=== PATIENT | male | born 1980 | race Caucasian/White ===

== ENCOUNTER 2020-07-20 11:25 | Inpatient (IN) | payer OTHER ==
[~2020-07-20] VITALS: Ht 172.7 cm; Wt 72.7 kg
[2020-07-20 13:07] LABS: BASOPHILS % (AUTO) 0.5 % (0.0-2.0); EOSINOPHILS % (AUTO) 3.3 % (1.0-6.0); HEMATOCRIT 50.6 % (41-53); HEMOGLOBIN 17.6 g/dL (13.5-17.5); LYMPHOCYTES % (AUTO) 33.6 % (22.0-44.0); MEAN CORPUSCULAR HEMOGLOBIN 33.1 pg (26.0-34.0); MEAN CORPUSCULAR HGB CONC 34.8 G/dL (31.0-37.0); MEAN CORPUSCULAR VOLUME 95 fL (80-100); MONOCYTES # (AUTO) 0.4 K/uL (0.1-1.0); MONOCYTES % (AUTO) 14.1 % (2.0-9.0); NEUTROPHILS # (AUTO) 1.4 K/uL (1.8-7.7); NEUTROPHILS % (AUTO) 48.5 % (40.0-70.0); PLATELET COUNT (AUTO) 134 K/uL (150-450); RED BLOOD CELL COUNT(AUTO) 5.31 MIL/uL (4.50-5.90); RED CELL DISTRIBUTION WIDTH 12.9 % (11.5-14.5)
[2020-07-20 13:14] LABS: ANION GAP 10 mmol/L (8-16); CALCIUM, TOTAL 9.2 mg/dL (8.8-10.5); CARBON DIOXIDE 26 mmol/L (22-29); CHLORIDE 100 mmol/L (98-107); CREATININE 0.96 mg/dL (0.60-1.30); GLOMERULAR FILTR. RATE CALC > 60 mL/min (>60); GLUCOSE,RANDOM 98 mg/dL (70-110); POTASSIUM 4.4 mmol/L (3.5-5.1); SODIUM SERUM 136 mmol/L (136-145); UREA NITROGEN, BLOOD 13 mg/dL (7-18)
[2020-07-20] MEDS ORDERED: ZOLPIDEM TARTRATE 5 MG TABLET PO PRN (13:15)
[2020-07-20] MEDS ORDERED: ACETAMINOPHEN 325 MG TABLET PO PRN (13:15)
[2020-07-20] MEDS ORDERED: ONDANSETRON HCL 4 MG/2 ML VIAL IVP PRN (13:15)
[2020-07-20 13:20] LABS: ALANINE AMINOTRANSFERASE 138 U/L (12-78); ALBUMIN 3.9 g/dL (3.4-5.0); ALKALINE PHOSPHATASE 120 U/L (46-116); ASPARTATE AMINOTRANSFERASE 100 U/L (15-37); BILIRUBIN,TOTAL 0.6 mg/dL (0.1-1.0)
[2020-07-20] MEDS ORDERED: SODIUM CHLORIDE 0.9% 1,000 ML IV ONE (13:30)
[2020-07-20] MEDS: AmLODIPine BESYLATE 5 MG TABLET PO SCH (13:57)
[2020-07-20] MEDS: MULTIVITAMINS WITH MINERALS, THERAPEUTIC TABLET PO SCH (13:57)
[2020-07-20 15:11] LABS: COVID AG,FIA SOURCE NASOPHARYNGEAL
[2020-07-20 16:32] VITALS: BP 148/101
[2020-07-20] MEDS ORDERED: AmLODIPine BESYLATE 5 MG TABLET PO ONE (17:30)
[2020-07-20 18:39] VITALS: BP 159/94
[2020-07-20 19:59] VITALS: BP_SYST 127; BP_DIAS 79; BP_DIAS 80
[2020-07-20] MEDS: DOCUSATE SODIUM 100 MG CAPSULE PO SCH (20:10)
[2020-07-21 04:45] VITALS: BP 116/72
[2020-07-21 07:35] VITALS: BP 119/78
[2020-07-21] MEDS: MULTIVITAMINS WITH MINERALS, THERAPEUTIC TABLET PO SCH (08:01)
[2020-07-21] MEDS: FAMOTIDINE 20 MG TABLET PO SCH (08:01)
[2020-07-21] MEDS: ASPIRIN 81 MG CHEWABLE TABLET PO SCH (08:02)
[2020-07-21] MEDS: DOCUSATE SODIUM 100 MG CAPSULE PO SCH ×2 (08:02→20:01)
[2020-07-21] MEDS: AmLODIPine BESYLATE 5 MG TABLET PO SCH (08:02)
[2020-07-21] MEDS: LORazepam 2 MG/ML VIAL IVP PRN ×2 (09:22→17:52)
[2020-07-21 16:02] LABS: AMPHET/METH SCREEN,URINE POSITIVE (NEGATIVE); BARBITURATE SCREEN, URINE NEGATIVE (NEGATIVE); BENZODIAZEPINES SCREEN,URINE NEGATIVE (NEGATIVE); CANNABINOID SCREEN,URINE POSITIVE (NEGATIVE); COCAINE SCREEN,URINE NEGATIVE (NEGATIVE); METHADONE SCREEN, URINE NEGATIVE (NEGATIVE); OPIATE SCREEN,URINE POSITIVE (NEGATIVE)
[2020-07-21 16:10] LABS: PHENCYCLIDINE SCREEN,URINE NEGATIVE (NEGATIVE)
[2020-07-21 19:45] VITALS: BP 128/90
[2020-07-22 05:24] VITALS: BP 121/80
[2020-07-22 08:02] VITALS: BP 133/95
[2020-07-22] MEDS: FAMOTIDINE 20 MG TABLET PO SCH (08:44)
[2020-07-22] MEDS: DOCUSATE SODIUM 100 MG CAPSULE PO SCH ×2 (08:44→20:50)
[2020-07-22] MEDS: AmLODIPine BESYLATE 5 MG TABLET PO SCH (08:44)
[2020-07-22] MEDS: MULTIVITAMINS WITH MINERALS, THERAPEUTIC TABLET PO SCH (08:44)
[2020-07-22] MEDS: ASPIRIN 81 MG CHEWABLE TABLET PO SCH (08:44)
[2020-07-22] MEDS: LORazepam 2 MG/ML VIAL IVP PRN (08:45)
[2020-07-22] MEDS ORDERED: LORazepam 1 MG TABLET PO PRN (09:45)
[2020-07-22] MEDS ORDERED: VITAMINS A & D 113 GM OINTMENT TP SCH (14:00)
[2020-07-22] MEDS ORDERED: MINERAL OIL/PETROLATUM 120 GM CREAM TP SCH (14:00)
[2020-07-22 20:41] VITALS: BP 136/83
[2020-07-23 04:50] VITALS: BP 128/80
[2020-07-23 07:42] VITALS: BP 119/82
[2020-07-23 08:10] LABS: BASOPHILS % (AUTO) 0.3 % (0.0-2.0); EOSINOPHILS % (AUTO) 0.1 % (1.0-6.0); HEMATOCRIT 51.2 % (41-53); HEMOGLOBIN 17.7 g/dL (13.5-17.5); LYMPHOCYTES # (AUTO) 0.8 K/uL (1.0-4.8); LYMPHOCYTES % (AUTO) 24.4 % (22.0-44.0); MEAN CORPUSCULAR HGB CONC 34.6 G/dL (31.0-37.0); MEAN CORPUSCULAR VOLUME 95 fL (80-100); MONOCYTES # (AUTO) 0.4 K/uL (0.1-1.0); MONOCYTES % (AUTO) 11.6 % (2.0-9.0); NEUTROPHILS % (AUTO) 63.6 % (40.0-70.0); PLATELET COUNT (AUTO) 132 K/uL (150-450); RED BLOOD CELL COUNT(AUTO) 5.38 MIL/uL (4.50-5.90); RED CELL DISTRIBUTION WIDTH 12.6 % (11.5-14.5)
[2020-07-23 08:14] LABS: CREATININE 1.44 mg/dL (0.60-1.30); POTASSIUM 4.3 mmol/L (3.5-5.1)
== END 2020-07-23 09:36 | disposition left against medical advice (07) | DRG 897 ==
LOC: EMS 11:46 → 6S 13:11
PROVIDERS: ADMIT Internal Medicine; ATTEND Internal Medicine
DX: F10.139 Alcohol abuse with withdrawal, unspecified (principal); D61.818 Other pancytopenia; B19.20 Unspecified viral hepatitis C without hepatic coma; K74.60 Unspecified cirrhosis of liver; L40.9 Psoriasis, unspecified; I10 Essential (primary) hypertension; M32.9 Systemic lupus erythematosus, unspecified; F19.139 Other psychoactive substance abuse with withdrawal, unspecified; F17.210 Nicotine dependence, cigarettes, uncomplicated; F11.90 Opioid use, unspecified, uncomplicated; Y90.9 Presence of alcohol in blood, level not specified; F15.10 Other stimulant abuse, uncomplicated; F10.129 Alcohol abuse with intoxication, unspecified; Z91.19 Patient's noncompliance with other medical treatment and regimen; Z20.822 Contact with and (suspected) exposure to COVID-19
CPT/HCPCS: 80048; 80053; 80307; 85025; 87426; 99285; G0480; J2060; J7030

== ENCOUNTER 2020-07-24 02:06 | Inpatient (IN) | payer OTHER ==
[~2020-07-24] VITALS: Ht 185.4 cm; Wt 87.6 kg
[2020-07-24] VITALS (7 sets, daily range): BP systolic 105–145; BP diastolic 53–91
[2020-07-24] MEDS ORDERED: 0.9% SODIUM CHLORIDE 10 ML SYRINGE IVP PRN (02:30)
[2020-07-24] MEDS ORDERED: SODIUM CHLORIDE 0.9% 2,600 ML IV ONE (02:30)
[2020-07-24] MEDS ORDERED: VANCOMYCIN HCL 1.5 GM in DEXTROSE 5%-WATER 250 ML IV ONE (02:45)
[2020-07-24] MEDS ORDERED: PIPERACILLIN SODIUM/TAZOBACTAM 4.5 GM in DEXTROSE 5%-WATER 100 ML IV ONE (02:45)
[2020-07-24] MEDS ORDERED: ACETAMINOPHEN 325 MG TABLET PO ONE (02:45)
[2020-07-24 02:54] LABS: COVID AG,FIA SOURCE NASAL SWAB
[2020-07-24 03:12] LABS: ANION GAP 12 mmol/L (8-16); CALCIUM, TOTAL 8.7 mg/dL (8.8-10.5); CARBON DIOXIDE 22 mmol/L (22-29); CHLORIDE 98 mmol/L (98-107); CREATININE 1.05 mg/dL (0.60-1.30); GLOMERULAR FILTR. RATE CALC > 60 mL/min (>60); GLUCOSE,RANDOM 107 mg/dL (70-110); SODIUM SERUM 132 mmol/L (136-145); UREA NITROGEN, BLOOD 14 mg/dL (7-18)
[2020-07-24 03:15] LABS: BASOPHILS % (AUTO) 0.7 % (0.0-2.0); EOSINOPHILS % (AUTO) 0.1 % (1.0-6.0); HEMATOCRIT 48.7 % (41-53); HEMOGLOBIN 17.2 g/dL (13.5-17.5); LYMPHOCYTES # (AUTO) 1.2 K/uL (1.0-4.8); LYMPHOCYTES % (AUTO) 29.7 % (22.0-44.0); MEAN CORPUSCULAR HGB CONC 35.3 G/dL (31.0-37.0); MEAN CORPUSCULAR VOLUME 94 fL (80-100); MONOCYTES # (AUTO) 1.1 K/uL (0.1-1.0); MONOCYTES % (AUTO) 28.3 % (2.0-9.0); NEUTROPHILS # (AUTO) 1.6 K/uL (1.8-7.7); NEUTROPHILS % (AUTO) 41.2 % (40.0-70.0); PLATELET COUNT (AUTO) 122 K/uL (150-450); RED BLOOD CELL COUNT(AUTO) 5.19 MIL/uL (4.50-5.90); RED CELL DISTRIBUTION WIDTH 12.6 % (11.5-14.5)
[2020-07-24 03:20] LABS: LACTIC ACID 1.4 mmol/L (0.4-2.0)
[2020-07-24] MEDS ORDERED: KETOROLAC TROMETHAMINE 30 MG/ML VIAL IVP ONE (03:30)
[2020-07-24 03:32] LABS: INFLUENZA TYPE A NEGATIVE FOR TYPE A (NEGATIVE); INFLUENZA TYPE B NEGATIVE FOR TYPE B (NEGATIVE)
[2020-07-24 03:36] LABS: ALANINE AMINOTRANSFERASE 140 U/L (12-78); ALBUMIN 3.7 g/dL (3.4-5.0); ALKALINE PHOSPHATASE 100 U/L (46-116); ASPARTATE AMINOTRANSFERASE 55 U/L (15-37); BILIRUBIN,TOTAL 0.7 mg/dL (0.1-1.0); CREATINE KINASE, TOTAL ONLY 118 U/L (39-308); TOTAL PROTEIN, SERUM 8.1 g/dL (6.4-8.2)
[2020-07-24 04:17] LABS: APPEARANCE,URINE CLEAR (CLEAR); BILIRUBIN,URINE NEGATIVE (NEGATIVE); GLUCOSE, URINE (UA) NEGATIVE (NEGATIVE); KETONES,URINE NEGATIVE (NEGATIVE); LEUKOCYTE ESTERASE ,URINE NEGATIVE (NEGATIVE); NITRATE,URINE NEGATIVE (NEGATIVE); OCCULT BLOOD,URINE LARGE (NEGATIVE); PROTEIN,URINE NEGATIVE (NEGATIVE)
[2020-07-24 04:30] LABS: BACTERIA,URINE None Seen /HPF (None Seen); WBC,URINE 0-2 /HPF (0-5)
[2020-07-24] MEDS ORDERED: IOHEXOL 350 MG/ML 100 ML VIAL ONE (05:40)
[2020-07-24] MEDS ORDERED: SODIUM CHLORIDE 0.9% 100 ML ONE (05:40)
[2020-07-24] MEDS ORDERED: ONDANSETRON HCL 4 MG/2 ML VIAL IVP PRN (05:45)
[2020-07-24] MEDS ORDERED: SODIUM CHLORIDE 0.9% 1,000 ML IV SCH (06:00)
[2020-07-24] MEDS ORDERED: LORazepam 2 MG TABLET PO PRN (06:00)
[2020-07-24] MEDS ORDERED: 1: MAGNESIUM SULFATE 2 GM, MVI, ADULT NO.1 WITH VIT K 10 ML, THIAMINE 100 MG, FOLIC ACID IV SCH ×5 (06:30)
[2020-07-24] MEDS: ACETAMINOPHEN 325 MG TABLET PO PRN ×3 (08:41→23:18)
[2020-07-24] MEDS: HEPARIN SODIUM,PORCINE 5,000 UNITS/ML VIAL SQ SCH ×2 (08:41→15:08)
[2020-07-24] MEDS ORDERED: ASPIRIN 325 MG TABLET PO ONE (10:30)
[2020-07-24] MEDS: ATORVASTATIN CALCIUM 40 MG TABLET PO SCH (10:36)
[2020-07-24] MEDS: LORazepam 1 MG TABLET PO PRN ×2 (12:46→20:23)
[2020-07-24] MEDS: MORPHINE SULFATE 2 MG/ML SYRINGE IVP PRN ×3 (14:14→23:01)
[2020-07-24] MEDS: AZITHROMYCIN 500 MG TABLET PO SCH (15:08)
[2020-07-24] MEDS: CefTRIAXone 1 GM/DEXTROSE 50 ML IV SCH (15:08)
[2020-07-25] MEDS: HEPARIN SODIUM,PORCINE 5,000 UNITS/ML VIAL SQ SCH (00:15)
[2020-07-25] MEDS ORDERED: HEPARIN SODIUM 25000 UNITS/D5W 250 ML IV PRN (01:45)
[2020-07-25] MEDS ORDERED: HEPARIN SODIUM,PORCINE 5,000 UNITS/ML VIAL IVP PRN ×2 (01:45)
[2020-07-25 02:25] LABS: INR 1.2 (0.9-1.1); PROTHROMBIN TIME 12.4 SEC (9.4-11.6)
[2020-07-25] MEDS: MORPHINE SULFATE 2 MG/ML SYRINGE IVP PRN ×4 (04:07→20:17)
[2020-07-25 04:18] VITALS: BP 119/74
[2020-07-25] MEDS: ACETAMINOPHEN 325 MG TABLET PO PRN ×2 (05:45→20:17)
[2020-07-25 05:57] LABS: HEMATOCRIT 44.6 % (41-53); HEMOGLOBIN 15.6 g/dL (13.5-17.5); MEAN CORPUSCULAR HEMOGLOBIN 33.1 pg (26.0-34.0); MEAN CORPUSCULAR VOLUME 95 fL (80-100); PLATELET COUNT (AUTO) 105 K/uL (150-450); RED BLOOD CELL COUNT(AUTO) 4.72 MIL/uL (4.50-5.90); RED CELL DISTRIBUTION WIDTH 12.7 % (11.5-14.5)
[2020-07-25 06:36] LABS: ALANINE AMINOTRANSFERASE 91 U/L (12-78); ALKALINE PHOSPHATASE 73 U/L (46-116); ANION GAP 9 mmol/L (8-16); ASPARTATE AMINOTRANSFERASE 34 U/L (15-37); BILIRUBIN,TOTAL 0.8 mg/dL (0.1-1.0); C-REACTIVE PROTEIN QUANT 12.37 mg/dL (0.00-0.30); CALCIUM, TOTAL 8.3 mg/dL (8.8-10.5); CARBON DIOXIDE 24 mmol/L (22-29); CHLORIDE 100 mmol/L (98-107); CREATINE KINASE, TOTAL ONLY 67 U/L (39-308); CREATININE 1.09 mg/dL (0.60-1.30); FERRITIN 324 ng/mL (26-388); GLOMERULAR FILTR. RATE CALC > 60 mL/min (>60); GLUCOSE,RANDOM 102 mg/dL (70-110); LACTATE DEHYDROGENASE 196 U/L (85-227); SODIUM SERUM 133 mmol/L (136-145); TOTAL PROTEIN, SERUM 7.2 g/dL (6.4-8.2); UREA NITROGEN, BLOOD 10 mg/dL (7-18)
[2020-07-25] MEDS ORDERED: LORazepam 2 MG TABLET PO PRN (07:00)
[2020-07-25 07:30] VITALS: BP 121/79
[2020-07-25 07:46] LABS: BAND NEUTROPHILS % (MANUAL) 5 % (0-5); LYMPHOCYTES % (MANUAL) 32 % (22-44); MONOCYTES % (MANUAL) 21 % (2-9); SEGMENTED NEUTROPHILS % 42 % (40-70)
[2020-07-25] MEDS ORDERED: VANCOMYCIN HCL 1.5 GM in DEXTROSE 5%-WATER 250 ML IV ONE (08:00)
[2020-07-25] MEDS: ASPIRIN 81 MG CHEWABLE TABLET PO SCH (08:27)
[2020-07-25] MEDS: ATORVASTATIN CALCIUM 40 MG TABLET PO SCH (08:27)
[2020-07-25] MEDS ORDERED: LORazepam 2 MG TABLET PO SCH (09:00)
[2020-07-25] MEDS ORDERED: SODIUM CHLORIDE 0.9% 250 ML IV ONE (09:45)
[2020-07-25] MEDS: AZITHROMYCIN 500 MG TABLET PO SCH (09:48)
[2020-07-25] MEDS: LORazepam 1 MG TABLET PO PRN ×2 (11:17→16:43)
[2020-07-25 14:00] VITALS: BP 121/74
[2020-07-25] MEDS: CefTRIAXone 1 GM/DEXTROSE 50 ML IV SCH (14:06)
[2020-07-25] MEDS: VANCOMYCIN HCL 1 GM/D5% WATER 200 ML IV SCH (16:08)
[2020-07-25 20:03] VITALS: BP 115/76
[2020-07-25 23:46] VITALS: BP 108/70
[2020-07-26] MEDS: VANCOMYCIN HCL 1 GM/D5% WATER 200 ML IV SCH (00:27)
[2020-07-26] MEDS: LORazepam 1 MG TABLET PO PRN ×4 (00:27→18:58)
[2020-07-26] MEDS: MORPHINE SULFATE 2 MG/ML SYRINGE IVP PRN (00:36)
[2020-07-26 04:10] VITALS: BP 118/65
[2020-07-26 06:06] LABS: HIV 1-2 SCREEN 4TH GEN W/RFLX Non Reactive (Non Reactive)
[2020-07-26 06:31] LABS: ALANINE AMINOTRANSFERASE 67 U/L (12-78); ALBUMIN 2.8 g/dL (3.4-5.0); ALKALINE PHOSPHATASE 71 U/L (46-116); ANION GAP 9 mmol/L (8-16); ASPARTATE AMINOTRANSFERASE 25 U/L (15-37); BILIRUBIN,TOTAL 0.7 mg/dL (0.1-1.0); CALCIUM, TOTAL 8.5 mg/dL (8.8-10.5); CARBON DIOXIDE 23 mmol/L (22-29); CHLORIDE 102 mmol/L (98-107); CREATININE 1.01 mg/dL (0.60-1.30); GLOMERULAR FILTR. RATE CALC > 60 mL/min (>60); GLUCOSE,RANDOM 102 mg/dL (70-110); POTASSIUM 4.3 mmol/L (3.5-5.1); SODIUM SERUM 134 mmol/L (136-145); TOTAL PROTEIN, SERUM 7.1 g/dL (6.4-8.2); UREA NITROGEN, BLOOD 12 mg/dL (7-18); VANCOMYCIN,RANDOM 4.8 mcg/mL (25.0-50.0)
[2020-07-26] MEDS: AZITHROMYCIN 500 MG TABLET PO SCH (08:02)
[2020-07-26] MEDS: ATORVASTATIN CALCIUM 40 MG TABLET PO SCH (08:02)
[2020-07-26] MEDS: ASPIRIN 81 MG CHEWABLE TABLET PO SCH (08:02)
[2020-07-26 08:03] VITALS: BP 121/73
[2020-07-26] MEDS: LEVOFLOXACIN 500 MG TABLET PO SCH (08:24)
[2020-07-26] MEDS: VANCOMYCIN HCL 1.25 GM in DEXTROSE 5%-WATER 250 ML IV SCH ×2 (09:36→15:47)
[2020-07-26 11:18] VITALS: BP 117/73
[2020-07-26] MEDS ORDERED: APIX5TAB PO (11:20)
[2020-07-26] MEDS ORDERED: DEXA4 PO (11:21)
[2020-07-26] MEDS ORDERED: METF-960 PO (11:22)
[2020-07-26 12:05] VITALS: BP 116/69
[2020-07-26 15:58] VITALS: BP 118/79
[2020-07-26 21:10] VITALS: BP 115/72
[2020-07-26] MEDS: MELATONIN 3 MG TABLET PO PRN (21:52)
[2020-07-26] MEDS: ACETAMINOPHEN 325 MG TABLET PO PRN (21:53)
[2020-07-27] MEDS: VANCOMYCIN HCL 1.25 GM in DEXTROSE 5%-WATER 250 ML IV SCH ×2 (00:08→08:00)
[2020-07-27] MEDS: LORazepam 1 MG TABLET PO PRN ×2 (02:52→10:43)
[2020-07-27 05:09] VITALS: BP 125/81
[2020-07-27 06:14] LABS: BASOPHILS % (AUTO) 1.1 % (0.0-2.0); HEMATOCRIT 44.2 % (41-53); HEMOGLOBIN 15.4 g/dL (13.5-17.5); LYMPHOCYTES # (AUTO) 1.2 K/uL (1.0-4.8); LYMPHOCYTES % (AUTO) 35.4 % (22.0-44.0); MEAN CORPUSCULAR HEMOGLOBIN 32.9 pg (26.0-34.0); MEAN CORPUSCULAR HGB CONC 34.9 G/dL (31.0-37.0); MEAN CORPUSCULAR VOLUME 94 fL (80-100); MONOCYTES # (AUTO) 0.7 K/uL (0.1-1.0); MONOCYTES % (AUTO) 20.6 % (2.0-9.0); NEUTROPHILS # (AUTO) 1.4 K/uL (1.8-7.7); NEUTROPHILS % (AUTO) 41.9 % (40.0-70.0); PLATELET COUNT (AUTO) 151 K/uL (150-450); RED BLOOD CELL COUNT(AUTO) 4.68 MIL/uL (4.50-5.90); RED CELL DISTRIBUTION WIDTH 12.5 % (11.5-14.5)
[2020-07-27 06:29] LABS: ALANINE AMINOTRANSFERASE 62 U/L (12-78); ALBUMIN 2.8 g/dL (3.4-5.0); ALKALINE PHOSPHATASE 72 U/L (46-116); ANION GAP 7 mmol/L (8-16); ASPARTATE AMINOTRANSFERASE 24 U/L (15-37); BILIRUBIN,TOTAL 0.6 mg/dL (0.1-1.0); CALCIUM, TOTAL 8.7 mg/dL (8.8-10.5); CARBON DIOXIDE 26 mmol/L (22-29); CHLORIDE 103 mmol/L (98-107); CREATININE 0.95 mg/dL (0.60-1.30); GLOMERULAR FILTR. RATE CALC > 60 mL/min (>60); GLUCOSE,RANDOM 107 mg/dL (70-110); SODIUM SERUM 136 mmol/L (136-145); TOTAL PROTEIN, SERUM 7.4 g/dL (6.4-8.2); UREA NITROGEN, BLOOD 11 mg/dL (7-18); VANCOMYCIN,RANDOM 19.4 mcg/mL (25.0-50.0)
[2020-07-27] MEDS ORDERED: LORazepam 1 MG TABLET PO PRN (07:00)
[2020-07-27 07:38] VITALS: BP 110/66
[2020-07-27] MEDS ORDERED: LORazepam 1 MG TABLET PO SCH (09:00)
[2020-07-27] MEDS: ASPIRIN 81 MG CHEWABLE TABLET PO SCH (09:23)
[2020-07-27] MEDS: LEVOFLOXACIN 500 MG TABLET PO SCH (09:23)
[2020-07-27] MEDS: ATORVASTATIN CALCIUM 40 MG TABLET PO SCH (09:23)
[2020-07-27] MEDS: RisperiDONE 2 MG TABLET PO SCH ×2 (13:00→20:29)
[2020-07-27] MEDS: HydrOXYzine PAMOATE 50 MG CAPSULE PO PRN (13:00)
[2020-07-27 13:07] LABS: ORGANISM ID Not indicated.; S PNEUMO SOURCE Urine; STREP PNEUMONIAE AG URINE Negative (Negative); STREP.PNEUMO BODY FLUID CULT. Not indicated.
[2020-07-27] MEDS: CeFAZolin 2 GM/DEXTROSE 50 ML IV SCH ×2 (16:35→22:42)
[2020-07-27 20:10] VITALS: BP 124/57
[2020-07-28 04:10] VITALS: BP 127/64
[2020-07-28] MEDS: CeFAZolin 2 GM/DEXTROSE 50 ML IV SCH ×3 (06:21→23:30)
[2020-07-28] MEDS ORDERED: LORazepam 1 MG TABLET PO PRN (07:00)
[2020-07-28] MEDS: ASPIRIN 81 MG CHEWABLE TABLET PO SCH (08:30)
[2020-07-28] MEDS: LORazepam 1 MG TABLET PO PRN (08:55)
[2020-07-28] MEDS: RisperiDONE 2 MG TABLET PO SCH ×2 (08:55→20:38)
[2020-07-28] MEDS: ATORVASTATIN CALCIUM 40 MG TABLET PO SCH (08:55)
[2020-07-28] MEDS: LEVOFLOXACIN 500 MG TABLET PO SCH (08:55)
[2020-07-28 11:07] LABS: LEGIONELLA PNEUMO AG URINE Negative (Negative)
[2020-07-28 11:30] VITALS: BP 117/74
[2020-07-28 12:59] VITALS: BP 117/75
[2020-07-28] MEDS ORDERED: MIDAZOLAM HCL 2 MG/2 ML VIAL ONE (13:01)
[2020-07-28] MEDS ORDERED: BENZOCAINE 20% 50 MCG/SPRAY 57 GM ONE (13:01)
[2020-07-28] MEDS ORDERED: FentaNYL CITRATE PF 100 MCG/2 ML VIAL ONE (13:01)
[2020-07-28 13:43] VITALS: BP 116/75
[2020-07-28] MEDS ORDERED: FentaNYL CITRATE PF 100 MCG/2 ML VIAL IVP ONE (13:45)
[2020-07-28] MEDS ORDERED: BENZOCAINE 20% 50 MCG/SPRAY 57 GM TP ONE (13:45)
[2020-07-28] MEDS ORDERED: MIDAZOLAM HCL 2 MG/2 ML VIAL IVP ONE (13:45)
[2020-07-28 14:22] VITALS: BP 119/73
[2020-07-28] MEDS: MELATONIN 3 MG TABLET PO PRN (20:38)
[2020-07-28] MEDS ORDERED: SODIUM CHLORIDE 0.9% 1,000 ML ONE (20:40)
[2020-07-28 20:49] VITALS: BP 112/63
[2020-07-29 05:27] VITALS: BP 111/56
[2020-07-29] MEDS: CeFAZolin 2 GM/DEXTROSE 50 ML IV SCH (06:05)
[2020-07-29 07:35] VITALS: BP 105/63
[2020-07-29] MEDS: ATORVASTATIN CALCIUM 40 MG TABLET PO SCH (08:46)
[2020-07-29] MEDS: HydrOXYzine PAMOATE 50 MG CAPSULE PO PRN ×2 (08:46→16:15)
[2020-07-29] MEDS: ASPIRIN 81 MG CHEWABLE TABLET PO SCH (08:46)
[2020-07-29] MEDS: RisperiDONE 2 MG TABLET PO SCH ×2 (09:45→20:57)
[2020-07-29] MEDS: LEVOFLOXACIN 500 MG TABLET PO SCH (09:45)
[2020-07-29] MEDS: NAFCILLIN SODIUM 2 GM in DEXTROSE 5%-WATER 100 ML IV SCH ×3 (14:00→22:00)
[2020-07-29 20:05] VITALS: BP 101/45
[2020-07-30] MEDS: NAFCILLIN SODIUM 2 GM in DEXTROSE 5%-WATER 100 ML IV SCH ×6 (02:00→22:03)
[2020-07-30 07:30] VITALS: BP 98/51
[2020-07-30] MEDS: LEVOFLOXACIN 500 MG TABLET PO SCH (09:22)
[2020-07-30] MEDS: RisperiDONE 2 MG TABLET PO SCH ×2 (09:22→20:09)
[2020-07-30] MEDS: ASPIRIN 81 MG CHEWABLE TABLET PO SCH (09:22)
[2020-07-30] MEDS: ATORVASTATIN CALCIUM 40 MG TABLET PO SCH (09:22)
[2020-07-30] MEDS ORDERED: SODIUM CHLORIDE 0.9% 250 ML IV ONE (11:10)
[2020-07-30] MEDS: LORazepam 1 MG TABLET PO PRN (16:26)
[2020-07-30 20:05] VITALS: BP 104/49
[2020-07-31] MEDS: NAFCILLIN SODIUM 2 GM in DEXTROSE 5%-WATER 100 ML IV SCH ×6 (01:15→23:17)
[2020-07-31 04:43] VITALS: BP 107/68
[2020-07-31 07:52] VITALS: BP 118/71
[2020-07-31] MEDS ORDERED: SODIUM CHLORIDE 0.9% 250 ML IV ONE (09:05)
[2020-07-31] MEDS: ATORVASTATIN CALCIUM 40 MG TABLET PO SCH (09:07)
[2020-07-31] MEDS: HydrOXYzine PAMOATE 50 MG CAPSULE PO PRN (09:08)
[2020-07-31] MEDS: RisperiDONE 2 MG TABLET PO SCH ×2 (09:08→20:56)
[2020-07-31] MEDS: LEVOFLOXACIN 500 MG TABLET PO SCH (09:08)
[2020-07-31] MEDS: ASPIRIN 81 MG CHEWABLE TABLET PO SCH (09:08)
[2020-07-31 15:44] VITALS: BP 107/67
[2020-07-31 19:18] VITALS: BP 112/66
[2020-08-01] MEDS: NAFCILLIN SODIUM 2 GM in DEXTROSE 5%-WATER 100 ML IV SCH ×5 (02:22→18:00)
[2020-08-01 04:29] VITALS: BP 119/61
[2020-08-01 08:09] VITALS: BP 93/57
[2020-08-01] MEDS: ASPIRIN 81 MG CHEWABLE TABLET PO SCH (08:17)
[2020-08-01] MEDS: RisperiDONE 2 MG TABLET PO SCH (08:18)
[2020-08-01] MEDS: ATORVASTATIN CALCIUM 40 MG TABLET PO SCH (08:18)
[2020-08-01] MEDS: HydrOXYzine PAMOATE 50 MG CAPSULE PO PRN (10:32)
[2020-08-01 20:47] VITALS: BP 128/87
== END 2020-08-01 22:31 | disposition left against medical advice (07) | DRG 871 ==
LOC: EMS 02:10 → 6S 04:35 → 5N 11:00 → 6S 07-26 12:01
PROVIDERS: ADMIT Internal Medicine; ATTEND Internal Medicine
PROC: B24BZZ4 Ultrasonography of Heart with Aorta, Transesophageal (ICD-10-PCS; principal; 2020-07-28)
DX: A41.02 Sepsis due to Methicillin resistant Staphylococcus aureus (principal); J18.9 Pneumonia, unspecified organism; I38 Endocarditis, valve unspecified; F31.4 Bipolar disorder, current episode depressed, severe, without psychotic features; M32.9 Systemic lupus erythematosus, unspecified; F19.10 Other psychoactive substance abuse, uncomplicated; F17.210 Nicotine dependence, cigarettes, uncomplicated; B19.20 Unspecified viral hepatitis C without hepatic coma; I45.10 Unspecified right bundle-branch block; K74.60 Unspecified cirrhosis of liver; Z20.822 Contact with and (suspected) exposure to COVID-19; Z53.20 Procedure and treatment not carried out because of patient's decision for unspecified reasons; R31.9 Hematuria, unspecified; F15.10 Other stimulant abuse, uncomplicated; Z91.14 Patient's other noncompliance with medication regimen; Z91.19 Patient's noncompliance with other medical treatment and regimen; F10.20 Alcohol dependence, uncomplicated; F31.9 Bipolar disorder, unspecified; F41.9 Anxiety disorder, unspecified
CPT/HCPCS: 71045; 71260; 72193; 74160; 80053; 80202; 81001; 82550; 82728; 83605; 83615; 83735; 83930; 83935; 84145; 84300; 84484; 85025; 85379; 85610; 85651; 85730; 86140; 87040; 87077; 87186; 87205; 87389; 87426; 87449; 87804; 87899; 93005; 93306; 93312; 99285; A9575; J0690; J0696; J1644; J1885; J2250; J2270; J2543; J3010; J3370; J3411; J3475; J3490; J7030; J7050; J7060; 36415-L1; 36415-TC; U0003

== ENCOUNTER 2021-02-15 13:41 | Inpatient (IN) | payer OTHER ==
[~2021-02-15] VITALS: Ht 182.9 cm; Wt 93.4 kg
[2021-02-15] MEDS ORDERED: ZOLPIDEM TARTRATE 5 MG TABLET PO PRN (15:30)
[2021-02-15] MEDS ORDERED: VANCOMYCIN HCL 1 GM/D5% WATER 200 ML IV ONE (15:30)
[2021-02-15] MEDS ORDERED: SODIUM CHLORIDE 0.9% 1,000 ML IV ONE (15:30)
[2021-02-15] MEDS ORDERED: ONDANSETRON HCL 4 MG/2 ML VIAL IVP PRN (15:30)
[2021-02-15] MEDS ORDERED: ACETAMINOPHEN 325 MG TABLET PO PRN (15:30)
[2021-02-15] MEDS: CefTRIAXone 1 GM/DEXTROSE 50 ML IV SCH (15:48)
[2021-02-15 15:50] LABS: COVID AG,FIA SOURCE NASOPHARYNGEAL
[2021-02-15 15:52] LABS: BASOPHILS % (AUTO) 0.2 % (0.0-2.0); EOSINOPHILS % (AUTO) 2.4 % (1.0-6.0); HEMATOCRIT 44.7 % (41-53); HEMOGLOBIN 15.6 g/dL (13.5-17.5); LYMPHOCYTES # (AUTO) 1.4 K/uL (1.0-4.8); LYMPHOCYTES % (AUTO) 31.7 % (22.0-44.0); MEAN CORPUSCULAR HEMOGLOBIN 33.9 pg (26.0-34.0); MEAN CORPUSCULAR HGB CONC 34.8 G/dL (31.0-37.0); MEAN CORPUSCULAR VOLUME 97 fL (80-100); MONOCYTES # (AUTO) 1.2 K/uL (0.1-1.0); MONOCYTES % (AUTO) 28.8 % (2.0-9.0); NEUTROPHILS # (AUTO) 1.6 K/uL (1.8-7.7); NEUTROPHILS % (AUTO) 36.9 % (40.0-70.0); PLATELET COUNT (AUTO) 130 K/uL (150-450); RED BLOOD CELL COUNT(AUTO) 4.59 MIL/uL (4.50-5.90); RED CELL DISTRIBUTION WIDTH 13.1 % (11.5-14.5)
[2021-02-15 15:57] LABS: CALCIUM, TOTAL 9.2 mg/dL (8.8-10.5); CREATININE 1.38 mg/dL (0.60-1.30); POTASSIUM 4.1 mmol/L (3.5-5.1)
[2021-02-15] MEDS ORDERED: VANCOMYCIN HCL 1.5 GM in DEXTROSE 5%-WATER 250 ML IV ONE (16:00)
[2021-02-15 16:03] LABS: ALBUMIN 4.3 g/dL (3.4-5.0); BILIRUBIN,TOTAL 1.3 mg/dL (0.1-1.0); C-REACTIVE PROTEIN QUANT 14.75 mg/dL (0.00-0.30); TOTAL PROTEIN, SERUM 8.8 g/dL (6.4-8.2)
[2021-02-15] MEDS: OxyCODONE HCL/ACETAMINOPHEN 5-325 MG TABLET PO PRN ×2 (16:24→21:48)
[2021-02-15] MEDS ORDERED: IOHEXOL 350 MG/ML 100 ML VIAL ONE (17:51)
[2021-02-15] MEDS ORDERED: SODIUM CHLORIDE 0.9% 100 ML ONE (17:51)
[2021-02-15 19:32] LABS: ERYTHROCYTE SEDIMENTATION RATE 32 MM/HR (0-15)
[2021-02-15] MEDS ORDERED: SODIUM CHLORIDE 0.9% 500 ML IV ONE (21:42)
[2021-02-15 21:44] VITALS: BP 123/87
[2021-02-15] MEDS: DOCUSATE SODIUM 100 MG CAPSULE PO SCH (21:48)
[2021-02-16] MEDS ORDERED: VANCOMYCIN HCL 1 GM/D5% WATER 200 ML IV SCH
[2021-02-16 03:18] VITALS: BP 131/97
[2021-02-16] MEDS: OxyCODONE HCL/ACETAMINOPHEN 5-325 MG TABLET PO PRN ×4 (03:18→20:11)
[2021-02-16 07:20] LABS: ANION GAP 5 mmol/L (8-16); CALCIUM, TOTAL 8.7 mg/dL (8.8-10.5); CARBON DIOXIDE 27 mmol/L (22-29); CHLORIDE 104 mmol/L (98-107); CREATININE 1.16 mg/dL (0.60-1.30); GLOMERULAR FILTR. RATE CALC > 60 mL/min (>60); GLUCOSE,RANDOM 93 mg/dL (70-110); POTASSIUM 4.8 mmol/L (3.5-5.1); SODIUM SERUM 136 mmol/L (136-145); UREA NITROGEN, BLOOD 13 mg/dL (7-18)
[2021-02-16 07:37] VITALS: BP 124/86
[2021-02-16] MEDS: VANCOMYCIN HCL 1.25 GM in DEXTROSE 5%-WATER 250 ML IV SCH ×2 (08:30→20:15)
[2021-02-16] MEDS: DOCUSATE SODIUM 100 MG CAPSULE PO SCH ×2 (08:30→20:13)
[2021-02-16] MEDS: FAMOTIDINE 20 MG TABLET PO SCH (08:31)
[2021-02-16 15:18] VITALS: BP 128/84
[2021-02-16] MEDS: CefTRIAXone 1 GM/DEXTROSE 50 ML IV SCH (17:33)
[2021-02-16 20:32] VITALS: BP 111/63
[2021-02-16] MEDS: ZOLPIDEM TARTRATE 10 MG TABLET PO PRN (22:26)
[2021-02-17] MEDS: OxyCODONE HCL/ACETAMINOPHEN 5-325 MG TABLET PO PRN ×4 (01:54→23:14)
[2021-02-17 04:43] VITALS: BP 121/82
[2021-02-17] MEDS: VANCOMYCIN HCL 1.25 GM in DEXTROSE 5%-WATER 250 ML IV SCH (07:53)
[2021-02-17] MEDS: DOCUSATE SODIUM 100 MG CAPSULE PO SCH ×2 (08:03→23:14)
[2021-02-17] MEDS: FAMOTIDINE 20 MG TABLET PO SCH (08:03)
[2021-02-17 08:12] VITALS: BP 105/66
[2021-02-17 08:29] LABS: ANION GAP 5 mmol/L (8-16); CALCIUM, TOTAL 8.5 mg/dL (8.8-10.5); CARBON DIOXIDE 25 mmol/L (22-29); CHLORIDE 104 mmol/L (98-107); CREATININE 1.04 mg/dL (0.60-1.30); GLOMERULAR FILTR. RATE CALC > 60 mL/min (>60); GLUCOSE,RANDOM 96 mg/dL (70-110); POTASSIUM 4.3 mmol/L (3.5-5.1); SODIUM SERUM 134 mmol/L (136-145); UREA NITROGEN, BLOOD 12 mg/dL (7-18); VANCOMYCIN,RANDOM 7.8 mcg/mL (25.0-50.0)
[2021-02-17] MEDS: VANCOMYCIN HCL 1 GM/D5% WATER 200 ML IV SCH (15:00)
[2021-02-17] MEDS: CefTRIAXone 1 GM/DEXTROSE 50 ML IV SCH (17:48)
[2021-02-17 20:23] VITALS: BP 113/65
[2021-02-17] MEDS: ZOLPIDEM TARTRATE 10 MG TABLET PO PRN (20:39)
[2021-02-18] MEDS: VANCOMYCIN HCL 1 GM/D5% WATER 200 ML IV SCH ×4 (01:07→23:51)
[2021-02-18 04:25] VITALS: BP 106/59
[2021-02-18 06:59] LABS: BASOPHILS % (AUTO) 0.3 % (0.0-2.0); EOSINOPHILS % (AUTO) 4.9 % (1.0-6.0); LYMPHOCYTES # (AUTO) 1.3 K/uL (1.0-4.8); LYMPHOCYTES % (AUTO) 56.9 % (22.0-44.0); MEAN CORPUSCULAR HEMOGLOBIN 33.7 pg (26.0-34.0); MEAN CORPUSCULAR HGB CONC 34.7 G/dL (31.0-37.0); MEAN CORPUSCULAR VOLUME 97 fL (80-100); MONOCYTES # (AUTO) 0.5 K/uL (0.1-1.0); MONOCYTES % (AUTO) 20.7 % (2.0-9.0); NEUTROPHILS # (AUTO) 0.4 K/uL (1.8-7.7); NEUTROPHILS % (AUTO) 17.2 % (40.0-70.0); PLATELET COUNT (AUTO) 140 K/uL (150-450); RED BLOOD CELL COUNT(AUTO) 4.44 MIL/uL (4.50-5.90); RED CELL DISTRIBUTION WIDTH 12.8 % (11.5-14.5)
[2021-02-18 07:15] LABS: ANION GAP 6 mmol/L (8-16); CALCIUM, TOTAL 8.4 mg/dL (8.8-10.5); CARBON DIOXIDE 29 mmol/L (22-29); CHLORIDE 105 mmol/L (98-107); CREATININE 0.92 mg/dL (0.60-1.30); GLOMERULAR FILTR. RATE CALC > 60 mL/min (>60); GLUCOSE,RANDOM 91 mg/dL (70-110); POTASSIUM 4.3 mmol/L (3.5-5.1); SODIUM SERUM 140 mmol/L (136-145); UREA NITROGEN, BLOOD 11 mg/dL (7-18)
[2021-02-18 08:09] VITALS: BP 135/57
[2021-02-18] MEDS: FAMOTIDINE 20 MG TABLET PO SCH (08:50)
[2021-02-18] MEDS: OxyCODONE HCL/ACETAMINOPHEN 5-325 MG TABLET PO PRN ×3 (08:50→22:18)
[2021-02-18] MEDS: DOCUSATE SODIUM 100 MG CAPSULE PO SCH ×2 (08:51→20:02)
[2021-02-18 16:15] VITALS: BP 131/63
[2021-02-18] MEDS: CefTRIAXone 1 GM/DEXTROSE 50 ML IV SCH (17:49)
[2021-02-18 19:52] VITALS: BP 136/87
[2021-02-18] MEDS: ZOLPIDEM TARTRATE 10 MG TABLET PO PRN (20:02)
[2021-02-19 05:05] VITALS: BP 96/54
[2021-02-19 06:56] LABS: ANION GAP 5 mmol/L (8-16); CALCIUM, TOTAL 8.8 mg/dL (8.8-10.5); CARBON DIOXIDE 29 mmol/L (22-29); CHLORIDE 107 mmol/L (98-107); CREATININE 0.92 mg/dL (0.60-1.30); GLOMERULAR FILTR. RATE CALC > 60 mL/min (>60); GLUCOSE,RANDOM 93 mg/dL (70-110); POTASSIUM 4.5 mmol/L (3.5-5.1); SODIUM SERUM 141 mmol/L (136-145); UREA NITROGEN, BLOOD 11 mg/dL (7-18); VANCOMYCIN,RANDOM 17.9 mcg/mL (25.0-50.0)
[2021-02-19] MEDS: VANCOMYCIN HCL 1.25 GM in DEXTROSE 5%-WATER 250 ML IV SCH ×3 (08:18→23:29)
[2021-02-19] MEDS: DOCUSATE SODIUM 100 MG CAPSULE PO SCH ×2 (08:19→20:04)
[2021-02-19] MEDS: OxyCODONE HCL/ACETAMINOPHEN 5-325 MG TABLET PO PRN ×3 (08:19→18:08)
[2021-02-19] MEDS: FAMOTIDINE 20 MG TABLET PO SCH (08:19)
[2021-02-19 16:16] VITALS: BP 96/54
[2021-02-19] MEDS: CefTRIAXone 1 GM/DEXTROSE 50 ML IV SCH (18:53)
[2021-02-19] MEDS: ZOLPIDEM TARTRATE 10 MG TABLET PO PRN (20:04)
[2021-02-19 20:37] VITALS: BP 113/79
[2021-02-20 04:52] VITALS: BP 105/65
[2021-02-20 06:31] LABS: BASOPHILS % (AUTO) 0.3 % (0.0-2.0); EOSINOPHILS % (AUTO) 4.1 % (1.0-6.0); HEMATOCRIT 41.9 % (41-53); HEMOGLOBIN 14.6 g/dL (13.5-17.5); LYMPHOCYTES # (AUTO) 1.6 K/uL (1.0-4.8); LYMPHOCYTES % (AUTO) 69.9 % (22.0-44.0); MEAN CORPUSCULAR HEMOGLOBIN 33.6 pg (26.0-34.0); MEAN CORPUSCULAR HGB CONC 34.7 G/dL (31.0-37.0); MEAN CORPUSCULAR VOLUME 97 fL (80-100); MONOCYTES # (AUTO) 0.4 K/uL (0.1-1.0); MONOCYTES % (AUTO) 16.3 % (2.0-9.0); NEUTROPHILS # (AUTO) 0.2 K/uL (1.8-7.7); NEUTROPHILS % (AUTO) 9.4 % (40.0-70.0); PLATELET COUNT (AUTO) 157 K/uL (150-450); RED BLOOD CELL COUNT(AUTO) 4.33 MIL/uL (4.50-5.90); RED CELL DISTRIBUTION WIDTH 12.3 % (11.5-14.5)
[2021-02-20 06:46] LABS: ANION GAP 6 mmol/L (8-16); CALCIUM, TOTAL 9.1 mg/dL (8.8-10.5); CARBON DIOXIDE 30 mmol/L (22-29); CHLORIDE 106 mmol/L (98-107); CREATININE 0.96 mg/dL (0.60-1.30); GLOMERULAR FILTR. RATE CALC > 60 mL/min (>60); GLUCOSE,RANDOM 92 mg/dL (70-110); POTASSIUM 4.4 mmol/L (3.5-5.1); SODIUM SERUM 142 mmol/L (136-145); UREA NITROGEN, BLOOD 11 mg/dL (7-18)
[2021-02-20 07:36] VITALS: BP 123/70
[2021-02-20] MEDS: DOCUSATE SODIUM 100 MG CAPSULE PO SCH (07:53)
[2021-02-20] MEDS: FAMOTIDINE 20 MG TABLET PO SCH (07:53)
[2021-02-20] MEDS: VANCOMYCIN HCL 1.25 GM in DEXTROSE 5%-WATER 250 ML IV SCH (07:53)
[2021-02-20] MEDS: OxyCODONE HCL/ACETAMINOPHEN 5-325 MG TABLET PO PRN (07:53)
[2021-02-20] MEDS ORDERED: ACET650S24 PR (13:30)
[2021-02-20] MEDS ORDERED: CLIN300C3 PO (13:31)
== END 2021-02-20 17:51 | DRG 603 ==
LOC: EMS 13:45 → 6S 18:56
PROVIDERS: ADMIT Internal Medicine; ATTEND Internal Medicine
DX: L03.314 Cellulitis of groin (principal); L02.415 Cutaneous abscess of right lower limb; L03.115 Cellulitis of right lower limb; L02.214 Cutaneous abscess of groin; Z20.822 Contact with and (suspected) exposure to COVID-19; M32.9 Systemic lupus erythematosus, unspecified; F17.210 Nicotine dependence, cigarettes, uncomplicated; B19.20 Unspecified viral hepatitis C without hepatic coma; F11.90 Opioid use, unspecified, uncomplicated; D72.819 Decreased white blood cell count, unspecified
CPT/HCPCS: 73701; 80048; 80053; 80202; 84145; 85025; 85651; 86140; 87040; 87070; 87077; 87186; 87205; 99285; J0696; J2405; J3370; J7030; J7040; J7050; J7060; Q9967